=== PATIENT | male | born 1990 | race Two or more races ===

== ENCOUNTER 2025-04-23 07:19 | Inpatient (IN) | payer OTHER ==
[~2025-04-23] VITALS: Ht 182.9 cm; Wt 117.5 kg
[2025-04-23 07:57] LABS: Hematocrit 45.7 % (41.0-53.0); Hemoglobin 15.9 g/dL (13.5-17.5); Mean Corpuscular Hemoglobin 30.8 pg (28.0-32.0); Mean Corpuscular Volume 88.5 fL (80.0-100.0); Nucleated Red Blood Cells % 0.0 %
[2025-04-23 07:58] LABS: Potassium 4.2 mmol/L (3.5-5.1); Sodium 142 mmol/L (136-145)
[2025-04-23 07:59] LABS: Anion Gap 10 (5-15); Calcium 8.7 mg/dL (8.7-10.4); Carbon Dioxide 23 mmol/L (20-31)
[2025-04-23 08:02] LABS: Chloride 109 mmol/L (98-107)
[2025-04-23 08:04] LABS: BUN/Creatinine Ratio 5.9 (10.0-20.0)
[2025-04-23 08:05] LABS: Blood Urea Nitrogen 7 mg/dL (9-23); Glucose 115 mg/dL (74-106)
--- NOTE | 2025-04-23 08:05 | ED.PDOC ---
History of Present Illness HPI Comments 34-year-old male presents to the ER with spouse in the chief complaint of flu- like symptoms. Spouse reports on the patient having had fever, chills, N/V/D, sore throat, cough and congestion all starting Tuesday of 04/20/2025. Per spouse, be found the patient on the floor this morning which prompted to go to the ER. Denies any other symptoms at this time. No other associated symptoms, modifiers, recent injuries or sick contacts present at this time. Chief Complaint: Flu like Time Seen by MD: 07:59 Reviewed Notes: Nurses Notes, Medications, Allergies Allergies: Coded Allergies: NO KNOWN ALLERGIES (Unverified , 04/23/25) Information Source: Patient, Spouse Mode of Arrival: Ambulatory Severity: Moderate Timing: Days Duration: Since onset, Days Prehospital treatment: None Past Medical History PAST MEDICAL HISTORY: Denies Surgical History: Denies all surgeries Family History Family History: Reviewed,noncontributory to illness, Unknown Social History Smoker: Non-Smoker Alcohol: Denies ETOH Use Drugs: Denies Drug Use Lives In: Home Constitutional: reports: chills, fever, sweats; denies: diaphoresis, fatigue, malaise, weakness, others EENTM: reports: nose congestion, throat pain, throat swelling; denies: blurred vision, double vision, ear bleeding, ear discharge, ear drainage, ear pain, ear ringing, eye pain, eye redness, hearing loss, mouth pain, mouth swelling, nasal discharge, nose bleeding, nose pain, photophobia, tearing, voice changes, others Respiratory: reports: cough; denies: hemoptysis, orthopnea, SOB at rest, shortness of breath, SOB with excertion, stridor, wheezing, others Cardiovascular: denies: chest pain, dizzy spells, diaphoresis, Dyspnea on exertion, edema, irregular heart beat, left arm pain, lightheadedness, palpitations, PND, syncope, others Gastrointestinal: reports: diarrhea, nausea, vomiting; denies: abdomen distended, abdominal pain, blood streaked bowels, constipated, dysphagia, difficulty swallowing, hematemesis, melena, poor appetite, poor fluid intake, rectal bleeding, rectal pain, others Genitourinary: denies: burning, dysuria, flank pain, frequency, hematuria, incontinence, penile discharge, penile sore, pain, testicle pain, testicle swelling, urgency, others Neurological: denies: dizziness, fainting, headache, left sided numbness, left sided weakness, numbness, paresthesia, pre-existing deficit, right sided numbness, right sided weakness, seizure, speech problems, tingling, tremors, weakness, others Musculoskeletal: denies: back pain, gout, joint pain, joint swelling, muscle pain, muscle stiffness, neck pain, others Integumetry: denies: bruises, change in color, change in hair/nails, dryness, laceration, lesions, lumps, rash, wounds, others Allergic/Immunocompromised: denies: Difficulty Healing, Frequent Infections, Hives, Itching, others Hematologic/Lymphatic: denies: anemia, blood clots, easy bleeding, easy bruisi ng, swollen glands, others Endocrine: denies: excessive hunger, excessive sweating, excessive thirst, exce ssive urination, flushing, intolerance to cold, intolerance to heat, unexplained weight gain, unexplained weight loss, others Psychiatric: denies: anxiety, bipolar disorder, depression, hopeless, panic disorder, schizophrenia, sleepless, suicidal, others All Other Systems: Reviewed and Negative Physical Exam General Appearance: Moderate Distress, Normal HEENT: Normal ENT Inspection, Pharyngeal Erythema, TMs Normal, Tonsillar Exudate Neck: Full Range of Motion, Non-Tender, Normal, Normal Inspection Respiratory: Chest Non-Tender, Lungs Clear, No Accessory Muscle Use, No Respiratory Distress, Normal Breath Sounds Cardiovascular: No Edema, No JVD, No Murmur, No Gallop, Normal Peripheral Pulses, Regular Rate/Rhythm Breast Exam: Deferred Gastrointestinal: No Organomegaly, Non Tender, No Pulsatile Mass, Normal Bowel Sounds, Soft Genitalia: Deferred Pelvic: Deferred Rectal: Deferred Extremities: No calf tenderness, Normal capillary refill, Normal inspection, Normal range of motion, Non-tender, No pedal edema Musculoskeletal : Apperance: Normal 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 Was a procedure done?: No EKG EKG : Pulse Rate (adult): 95 Capitan: Normal Cardiac Rhythm: NSR Block: None Hypertrophy: None ST: Normal Differential Dx Considerations may include: Sepsis X-Ray, Labs, Meds, VS Vital Signs Date Time Temp Pulse Resp B/P (MAP) Pulse Ox O2 Delivery O2 Flow Rate FiO2 04/23/25 07:22 98.3 97 17 131/81 96 98.3 Lab Test 04/23/25 07:35 Range/Units White Blood Count Pending Red Blood Count Pending Hemoglobin Pending Hematocrit Pending Mean Corpuscular Volume Pending Mean Corpuscular Hemoglobin Pending Mean Corpuscular Hemoglobin Concent Pending Red Cell Distribution Width Pending Platelet Count Pending Mean Platelet Volume Pending Neutrophils (%) (Auto) Pending Lymphocytes (%) (Auto) Pending Monocytes (%) (Auto) Pending Basophils (%) (Auto) Pending Neutrophils # (Auto) Pending Lymphocytes # (Auto) Pending Monocytes # (Auto) Pending Sodium Level 142 136-145 mmol/L Potassium Level 4.2 3.5-5.1 mmol/L Chloride Level 109 H 98-107 mmol/L Carbon Dioxide Level 23 20-31 mmol/L Anion Gap 10 5-15 Blood Urea Nitrogen 7 L 9-23 mg/dL Creatinine 1.19 0.700-1.30 mg/dL Glomerular Filtration Rate Calc 81 >90 mL/min BUN/Creatinine Ratio 5.9 L 10.0-20.0 Serum Glucose 115 H 74-106 mg/dL Calcium Level 8.7 8.7-10.4 mg/dL Patient alert. Came in because of generalized weakness. Has been feeling like this for many days. Vitals stable. Answering questions. Establish intravenous access. Was given fluids. Sepsis protocol. Was given Rocephin. Was given clindamycin. Explained to the patient. Continue monitoring. Time of 1ST Reevaluation: 08:30 Reevaluation 1ST: Unchanged Patient Education/Counseling: Diagnosis, Treatment, Prognosis Family Education/Counseling: No Family Present SEPSIS Sepsis Screen Date sepsis recognized/suspect: Apr 23, 2025 Time Sepsis recognized/suspect: 721 Recent Procedure: No On Antibiotic Therapy: No Respiratory Rate >20: No Heart Rate >90: Yes Temp<36 C (96.8 F) or >38.3 C: No SBP <90 or MAP <65 mmHG: No New Acute Mental Status Change: No Is the patient on CPAP, BIPAP,: No Physician Orders Complete Blood Count (04/23/25 07:31) Urinalysis (04/23/25 07:31) Chest Portable (04/23/25 07:31) Rapid Influenza A&B (04/23/25 07:31) Covid19 Antigen Yessi (04/23/25 ) Blood Culture (04/23/25 08:00) Lactic Acid W/ Reflex Order (04/23/25 08:00) Ceftriaxone 1gm/50ml (Rocephin) (04/23/25 08:00) Clindamycin 900mg Iv (Cleocin Iv) (04/23/25 08:00) Sodium Chloride 0.9% (04/23/25 08:00) Sodium Chloride 0.9% (04/23/25 08:00) Vital Signs Date Time Temp Pulse Resp B/P (MAP) Pulse Ox O2 Delivery O2 Flow Rate FiO2 04/23/25 07:22 98.3 97 17 131/81 96 98.3 Laboratory Tests Test 04/23/25 07:35 White Blood Count Pending Departure 1 Departure Time of Disposition: 08:07 Impression: Primary Impression: Sepsis, unspecified organism Qualified Codes: A41.9 - Sepsis, unspecified organism Additional Impression: Acute tonsillitis Qualified Codes: J03.90 - Acute tonsillitis, unspecified Disposition: 09 ADMITTED INPATIENT Admit to: Med Surg Condition: Guarded Critical Care Note Critical Care Time?: Yes (90 min-critical care time only) Stability Stability form required: No Heart Score Heart Score: Heart Score Response (Comments) Value History N/A 0 EKG N/A 0 Age N/A 0 Risk Factors N/A 0 Troponin N/A 0 Total 0 I personally scribed for TATI KINNEY MD ([email or web address]) on 04/23/25 at 08:05. Electronically submitted by Francisco Javier Otero ([email or web address]). TATI KINNEY MD Apr 23, 2025 08:05
--- NOTE | 2025-04-23 08:14 | DVH ---
CHEST RADIOGRAPH INDICATION: sob TECHNIQUE: Single frontal view of the chest was obtained COMPARISON: None FINDINGS: The cardiac silhouette is enlarged. The lungs demonstrate perihilar airspace opacities. The pulmonary vasculature is prominent. There is no pleural effusion. There is no pneumothorax. IMPRESSION: Cardiomegaly with pulmonary vascular congestion and bilateral perihilar airspace opacities.
[2025-04-23 08:41] VITALS: PULSE 103; RESP 18; O2SAT 98
[2025-04-23] MEDS: SODIUM CHLORIDE 0.9% 1,000 ML IV ONE ×2 (09:01→09:59)
[2025-04-23] MEDS: CLINDAMYCIN 900MG IV 50 ML IV ONE (09:26)
--- NOTE | 2025-04-23 09:41 | ECG ---
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
[2025-04-23 10:56] LABS: COVID19 ANTIGEN SOFIA FIA NEGATIVE (NEGATIVE)
[2025-04-23] MEDS ORDERED: DOCUSATE SOD 100 MG CAP PO PRN (11:45)
[2025-04-23] MEDS ORDERED: ONDANSETRON HCL 4 MG/2 ML VIAL IV PRN (11:45)
[2025-04-23] MEDS ORDERED: ACETAMINOPHEN 325 MG TAB PO PRN (11:45)
[2025-04-23] MEDS: OSELTAMIVIR 75 MG CAP PO ONE (12:03)
--- NOTE | 2025-04-23 12:36 | DVHHP2 ---
History of Present Illness Reason for Visit: Flu Like symptoms History of Present Illness Oumar Armstrong is a 34-year-old male with no significant past medical history, that came to the hospital for flu like symptoms. Patient is seen in the ER with his at his side. He states his symptoms began Tuesday evening with sore throat, pain with breathing. It progressed to a cough, fever, chills, body aches, and diaphoresis. This morning his had him come to the hospital because he was laying on the floor. Patient states he has not been able to sleep for the last 2 nights either. Past Surgical History: None Smoke: No ALCOHOL: none Drugs: None Lives: with Family Domestic Violence: Neg Review of Systems Constitutional: Yes: Fever, Chills, Sweats, Weakness, Malaise; No: Other Eyes: No: Pain, Vision change, Conjunctivae inflammation, Eyelid inflammation, Other, Redness ENT: No: Ear pain, Ear discharge, Nose pain, Nose discharge, Nose congestion, Mouth pain, Mouth swelling, Throat pain, Throat swelling, Other Respiratory: Cough, Pleuritic Pain, Sputum (yellow, green); No: Dry, Shortness of breath, SOB with excertion, Wheezing, Hemoptysis, Wheezing, Other Cardiovascular: No: Chest Pain, Palpitations, Orthopnea, Paroxysmal Noc. Dyspnea, Edema, Lt Headedness, Other Gastrointestinal: No: Nausea, Vomiting, Abdominal Pain, Diarrhea, Constipation, Melena, Hematochezia, Other Genitourinary: No Dysuria, No Frequency, No Incontinence, No Hematuria, No Retention, No Other Musculoskeletal: No: other, neck pain, shoulder pain, arm pain, back pain, hand pain, leg pain, foot pain Skin: No: Rash, Lesions, Jaundice, Bruising, Other Neurological: No: Weakness, Numbness, Incoordination, Change in speech, Confusion, Seizures, Other Allergies: Coded Allergies: NO KNOWN ALLERGIES (Unverified , 04/23/25) Exam Vital Signs Vital Signs Date Time Temp Pulse Resp B/P (MAP) Pulse Ox O2 Delivery O2 Flow Rate FiO2 04/23/25 08:41 99.3 103 18 127/63 (84) 98 99.3 04/23/25 08:41 Room Air* 0 21 General Appearance: Alert, Oriented X3, Cooperative, mild distress HEENT: Atraumatic, PERRLA Respiratory: Clear to auscultation Cardiovascular: Normal S1, Normal S2, Other (SR-ST) Abdominal: Normal bowel sounds, No tenderness, No hepatospenomegaly Extremities: No clubbing, No cyanosis, No edema, Normal pulses Skin: No rashes, No breakdown, No significant lesion Neuro: Normal gait, Normal speech, Strength at 5/5 X4 ext Psych/Mental Status: Mental status NL, Mood NL Labs/Xrays Labs Test 04/23/25 08:43 04/23/25 08:14 04/23/25 07:35 Range/Units Influenza Type A Antigen Positive Negative Influenza Type B Antigen Negative Negative SARS-CoV-2 Antigen (Rapid) Negative NEGATIVE Lactic Acid Level 1.3 0.4-2.0 mmol/L White Blood Count 6.6 4.4-10.8 10^3/uL Red Blood Count 5.17 4.5-5.90 10^6/uL Hemoglobin 15.9 13.5-17.5 g/dL Hematocrit 45.7 41.0-53.0 % Mean Corpuscular Volume 88.5 80.0-100.0 fL Mean Corpuscular Hemoglobin 30.8 28.0-32.0 pg Mean Corpuscular Hemoglobin Concent 34.8 32.0-36.0 g/dL Red Cell Distribution Width 13.2 11.8-14.3 % Platelet Count 189 140-450 10^3/uL Mean Platelet Volume 7.7 6.9-10.8 fL Neutrophils (%) (Auto) 80.1 H 37.0-80.0 % Lymphocytes (%) (Auto) 9.8 L 10.0-50.0 % Monocytes (%) (Auto) 8.7 0.0-12.0 % Eosinophils (%) (Auto) 0.6 0.0-7.0 % Basophils (%) (Auto) 0.8 0.0-2.0 % Neutrophils # (Auto) 5.3 1.6-8.6 10 ^3/uL Lymphocytes # (Auto) 0.6 0.4-5.4 10 ^3/uL Monocytes # (Auto) 0.6 0-1.3 10 ^3/uL Eosinophils # (Auto) 0 0-0.8 10 ^3/uL Basophils # (Auto) 0.1 0-0.2 10 ^3/uL Nucleated Red Blood Cells 0.0 % Sodium Level 142 136-145 mmol/L Potassium Level 4.2 3.5-5.1 mmol/L Chloride Level 109 H 98-107 mmol/L Carbon Dioxide Level 23 20-31 mmol/L Anion Gap 10 5-15 Blood Urea Nitrogen 7 L 9-23 mg/dL Creatinine 1.19 0.700-1.30 mg/dL Glomerular Filtration Rate Calc 81 >90 mL/min BUN/Creatinine Ratio 5.9 L 10.0-20.0 Serum Glucose 115 H 74-106 mg/dL Calcium Level 8.7 8.7-10.4 mg/dL CHEST RADIOGRAPH FINDINGS: The cardiac silhouette is enlarged. The lungs demonstrate perihilar airspace opacities. The pulmonary vasculature is prominent. There is no pleural effusion. There is no pneumothorax. IMPRESSION: Cardiomegaly with pulmonary vascular congestion and bilateral perihilar airspace opacities. SEPSIS Sepsis Screen Date sepsis recognized/suspect: Apr 23, 2025 Time Sepsis recognized/suspect: 827 Recent Procedure: No On Antibiotic Therapy: No Respiratory Rate >20: No Heart Rate >90: Yes Temp<36 C (96.8 F) or >38.3 C: No SBP <90 or MAP <65 mmHG: No New Acute Mental Status Change: No Is the patient on CPAP, BIPAP,: No Physician Orders Urinalysis (04/23/25 07:31) Chest Portable (04/23/25 07:31) Blood Culture (04/23/25 08:00) Sodium Chloride 0.9% (04/23/25 08:00) Oseltamivir 75mg Capsule (Tamiflu 75mg C (04/23/25 22:00) Oseltamivir 75mg Capsule (Tamiflu 75mg C (04/23/25 11:45) Admit (04/23/25 11:44) Code Status (04/23/25 11:44) Ondansetron Hcl (Zofran) (04/23/25 11:45) Docusate Sodium Capsule (Colace Capsule) (04/23/25 11:45) Zinc Sulfate (04/24/25 10:00) Ascorbic Acid Tablet (Vitamin C Tablet) (04/23/25 22:00) Multiple Vitamin Tablet (Mvi Tab) (04/24/25 10:00) Complete Blood Count (04/24/25 04:00) Comprehensive Metabolic Panel (04/24/25 04:00) Condition: Serious (04/23/25 11:44) Acetaminophen Tablet (Tylenol Tablet) (04/23/25 11:45) Vital Signs Date Time Temp Pulse Resp B/P (MAP) Pulse Ox O2 Delivery O2 Flow Rate FiO2 04/23/25 08:41 99.3 103 18 127/63 (84) 98 99.3 04/23/25 08:41 103 18 98 Room Air* 0 21 04/23/25 08:05 95 04/23/25 07:29 95 04/23/25 07:22 98.3 97 17 131/81 96 98.3 Laboratory Tests Test 04/23/25 07:35 04/23/25 08:14 White Blood Count 6.6 10^3/uL (4.4-10.8) Lactic Acid Level 1.3 mmol/L (0.4-2.0) Medications Medications Dose Ordered Sig/Kailee Route Start Time Stop Time Status Last Admin Dose Admin Ceftriaxone Sodium 50 ml @ 100 mls/hr ONCE ONCE IV 04/23/25 08:00 04/23/25 08:29 DC 04/23/25 09:00 100 MLS/HR Clindamycin Phosphate 50 ml @ 50 mls/hr ONCE ONCE IV 04/23/25 08:00 04/23/25 08:59 DC 04/23/25 09:26 50 MLS/HR Sodium Chloride 1,000 ml @ 150 mls/hr Q6H40M ONCE IV 04/23/25 08:00 04/23/25 14:39 04/23/25 09:59 150 MLS/HR Sodium Chloride 1,000 ml @ 1,000 mls/hr Q1H ONCE IV 04/23/25 08:00 04/23/25 08:59 DC 04/23/25 09:01 1,000 MLS/HR Assessment/Plan Assessment/Plan Assessment: Influenza A, Dehydration, Febrile, Plan: Admit to Med-Surg, IV hydration, Tamiflu, Supportive care, AM labs, Plan discussed with: Patient, Spouse My Orders Orders - NATI JOYNER Procedure Category Date Status Time Oseltamivir 75mg PHA 04/23/25 Verified Capsule (Tamiflu 75mg 22:00 Oseltamivir 75mg PHA 04/23/25 Verified Capsule (Tamiflu 75mg 11:45 Admit ADMIT 04/23/25 Verified 11:44 Code Status CODE 04/23/25 Verified 11:44 Ondansetron Hcl PHA 04/23/25 Verified (Zofran) 11:45 Docusate Sodium PHA 04/23/25 Verified Capsule (Colace 11:45 Zinc Sulfate PHA 04/24/25 Verified 10:00 Ascorbic Acid Tablet PHA 04/23/25 Verified (Vitamin C Tablet) 22:00 Multiple Vitamin PHA 04/24/25 Verified Tablet (Mvi Tab) 10:00 Complete Blood Count LAB 04/24/25 Verified 04:00 Comprehensive LAB 04/24/25 Verified Metabolic Panel 04:00 Condition: Serious CAROL 04/23/25 Verified 11:44 Acetaminophen Tablet PHA 04/23/25 Verified (Tylenol Tablet) 11:45 Date of Service: Apr 23, 2025 Billing Provider: NATI JOYNER Common Visit Codes: [id number] INP/OBS CARE (MOD) NATI JOYNER Apr 23, 2025 12:36
[2025-04-23 12:52] LABS: Urine Protein, UAD Negative (Negative)
[2025-04-23 17:03] VITALS: BP 146/86; PULSE 110; RESP 24; O2SAT 96
[2025-04-23 17:26] VITALS: TEMP 102.8
[2025-04-23] MEDS: ACETAMINOPHEN 500 MG TAB or CAP PO ONE (17:26)
[2025-04-23] MEDS ORDERED: ASCORBIC ACID 500 MG TAB PO SCH (22:00)
[2025-04-23] MEDS ORDERED: OSELTAMIVIR 75 MG CAP PO SCH (22:00)
[2025-04-24] MEDS ORDERED: MULTIPLE VITAMIN TAB PO SCH (10:00)
[2025-04-24] MEDS ORDERED: ZINC SULFATE 220mg CAP or TAB PO SCH (10:00)
== END 2025-04-23 19:29 | disposition left against medical advice (07) | DRG 872 ==
LOC: ER 07:19 → OVERFLOW 11:44
PROVIDERS: ADMIT Nurse Practitioner Family; ATTEND Nurse Practitioner Family
DX: A41.9 Sepsis, unspecified organism (principal); E86.0 Dehydration; J10.1 Influenza due to other identified influenza virus with other respiratory manifestations; Z53.29 Procedure and treatment not carried out because of patient's decision for other reasons; Z20.822 Contact with and (suspected) exposure to COVID-19; Z79.899 Other long term (current) drug therapy
CPT/HCPCS: 36415; 71045; 80048; 81001; 83605; 85025; 87040; 87426; 87804; 93005; 96365; 96368; 99291; 99292; G0378; J3490